=== PATIENT | male | born 2000 | race Caucasian/White ===

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

== ENCOUNTER 2023-03-20 02:52 | Day surgery (SDC) | payer OTHER, SELFPAY ==
[2023-03-20] VITALS (14 sets, daily range): BP systolic 93–152; BP diastolic 46–94; PULSE 66–86; RESP 16–18; TEMP 36.1–36.9; O2SAT 94–100; BMI 31.5
[2023-03-20 03:14] LABS: Appearance,Urine CLEAR (Clear); Bilirubin,Urine Negative (Negative); Blood, Urine Negative (Negative); Color,Urine YELLOW (Yellow); Glucose,Urine (UA) Negative (Negative); Ketones,Urine Negative (Negative); Leukocyte Esterase,Urine Negative (Negative); Microscopic, Urine URINE MICROSCOPIC (MICROSCOPIC); Nitrate,Urine Negative (Negative); PH,Urine 5.5 (5.0-8.5); Protein,Urine Negative (Negative); Specific Gravity, Urine >= 1.030 (1.005-1.030); Urobilinogen,Urine 0.2 EU/dl (0.2)
[2023-03-20 03:18] LABS: Basophils # 0.1 K/mm3 (0-0.2); Basophils % 0.3 % (0.1-2.0); Eosinophils # 0.4 K/mm3 (0.0-0.4); Hematocrit 48.3 % (42.0-52.0); Hemoglobin 16.6 g/dL (14.1-18.0); Lymphocytes # 2.4 K/mm3 (0.7-4.5); Mean Corpuscular HGB Conc 34.4 g/dL (31.8-35.4); Mean Corpuscular Hemoglobin 29.1 pg (27.0-31.2); Mean Corpuscular Volume 84.4 fl (80-94); Monocytes # 0.7 K/mm3 (0.1-1.0); Monocytes % 3.5 % (1.7-9.3); Neutrophils # 16.2 K/mm3 (1.8-7.8); Neutrophils % 82.3 % (37.0-80.0); Platelet Count 282 K/mm3 (142-424); Red Blood Count 5.71 M/mm3 (4.60-6.20); Red Cell Distribution Width 13.5 % (11.5-17.5); White Blood Count 19.7 K/mm3 (4.8-10.8)
--- NOTE | 2023-03-20 03:19 | CT_ITS ---
PROCEDURE INFORMATION: Exam: CT Abdomen And Pelvis With Contrast Exam date and time: 03/20/2023 3:58 AM Age: 23 years old Clinical indication: Abdominal pain; Additional info: Pain, ttp of rlq TECHNIQUE: Imaging protocol: Computed tomography of the abdomen and pelvis with contrast. Radiation optimization: All CT scans at this facility use at least one of these dose optimization techniques: automated exposure control; mA and/or kV adjustment per patient size (includes targeted exams where dose is matched to clinical indication); or iterative reconstruction. Contrast material: ISOVUE; Contrast volume: 75 ml; Contrast route: IV; REPORTING DATA: Count of CT and Cardiac NM exams in prior 12 months: This patient has received 0 known CTs and 0 known cardiac nuclear medicine studies in the 12 months prior to the current study. COMPARISON: CR XR PELVIS 1-2V 04/02/2021 6:23 AM FINDINGS: Lungs: Minimal gravity dependent changes noted at the lung bases. Liver: Normal. No mass. Gallbladder and bile ducts: Normal. No calcified stones. No ductal dilation. Pancreas: Normal. No ductal dilation. Spleen: The spleen is top-normal in caliber, measuring 11.6 x 4.0 x 13.2 cm. Adrenal glands: Normal. No mass. Kidneys and ureters: The kidneys enhance symmetrically and there is no evidence for hydronephrosis. There is minimal renal cortical scarring noted on the right. Stomach and bowel: Scattered colonic diverticula are noted. Appendix: The appendix is mildly dilated measuring up to 10 mm in thickness with a 6 mm appendicolith present compatible with acute appendicitis. There is no drainable fluid collection or free intraperitoneal air. Intraperitoneal space: No free intraperitoneal air or ascites. Vasculature: Unremarkable. No abdominal aortic aneurysm. Lymph nodes: Unremarkable. No enlarged lymph nodes. Urinary bladder: The urinary bladder is contracted. Reproductive: Unremarkable as visualized. Bones/joints: Unremarkable. No acute fracture. Soft tissues: Unremarkable. IMPRESSION: Acute appendicitis. Appendicolith.
[2023-03-20 03:20] LABS: MANUAL DIFFERENTIAL MANUAL DIFFERENTIAL (MANUAL DIFF)
[2023-03-20 03:23] LABS: Chloride 102 mmol/L (98-107); Potassium 4.1 mmoL/L (3.5-5.1); Sodium 139 mmol/L (136-145)
[2023-03-20 03:25] LABS: Alanine Aminotransferase 59 U/L (12-78); Aspartate Amino Transferase 40 U/L (17-59); Blood Urea Nitrogen 14 mg/dl (9-20); Creatinine Clearance Estimated 165 mL/min (50-200); Estimated Glomerular Filt Rate 94 ml/min (>60); GFR (African American) 114 ML/MIN (>60)
[2023-03-20 03:26] LABS: Albumin/Globulin Ratio 1.5 (1.1-1.8); Alkaline Phosphatase 88 U/L (38-126); Anion Gap 15.1 mEq/L (5-15); Bilirubin,Total 0.7 mg/dl (0.2-1.3); Calcium 9.1 mg/dl (8.4-10.2); Carbon Dioxide 26 mmol/L (22.0-30.0); Globulin 3.3 g/dL (1.3-3.2); Glucose 131 mg/dl (74-100); Lipase 102 U/L (23-300); Total Protein,Serum 8.3 g/dl (6.3-8.2)
[2023-03-20 03:28] LABS: Squamous Epithelial Cell,Urine Occasional #/hpf (0-5)
[2023-03-20 03:36] LABS: Eosinophils % 3 % (0-3); Lymphocytes % 13 % (10-50); Monocytes % 4 % (2-9); Neutrophils % 80 % (42-76); Platelet Estimate Normal; RBC Morphology Normal; Total Cells Counted 100
--- NOTE | 2023-03-20 04:22 | HMH.EDGENADL ---
Discharge Plan Disposition Patient Disposition: Still a Patient Condition: Good Prescriptions Prescriptions: No Action No Known Home Medications Referrals Follow up/Referrals: Provider,Referral, [Primary Care Provider] - See instructions Clinical Impressions Clinical Impression: Acute appendicitis Instructions Patient Instructions: DI for Acute Abdominal Pain Discharge ED Provider: Estelle Sanches Adult HPI General Chief complaint: Abdominal Pain Stated complaint: Stomach pain Time Seen by Provider: 03/20/23 03:05 Mode of Arrival: Ambulatory Source of Information: Patient Limitations: No Limitations Description of Symptoms (Recalled from ER Triage Doc. by RN): Patient reports sharp epigastric abdominal pain rated 8/10 that has been intermittent and steadily getting worse since 5pm yesterday afternoon. Patient reports last bowel movement was around 6pm yesterday, denies dysuria, denies N/V/D. Patient reports no other symptoms at this time. History of Present Illness HPI narrative: This patient is a 23-year-old male who denies significant past medical history presenting to the emergency department for evaluation with concern for generalized abdominal pain that started yesterday around 5 PM but has significantly gotten worse since then. Nothing seems to make it better or worse. He complains that it is all over his abdomen, but he is most tender in the lower abdomen, worse in the right lower quadrant. He denies any nausea, vomiting, changes bowel movements, dysuria, urinary symptoms, or other concerns. His last bowel movement was yesterday and was normal for him. Related Data Home Medications Medication Instructions Recorded Confirmed No Known Home Medications 04/02/21 04/02/21 Allergies Allergy/AdvReac Type Severity Reaction Status Date / Time No Known Allergies Allergy Verified 10/14/18 12:07 [facility] Disclaimer: The information contained in this section may have been updated after the patient was seen, as this information can be updated by other users. Social History Smoking Status: Current every day smoker alcohol intake: never current occupational status: other Travel in the last 8 weeks: None ROS Obtained: Yes All systems reviewed & no additional complaints except as documented Physical Exam General General appearance: alert and in no apparent distress Head Head exam: atraumatic and normocephalic Eye Eye exam: Present normal appearance, PERRL and EOMI ENT ENT exam: Present normal exam, normal oropharynx, mucous membranes moist and normal external ear exam Neck Neck exam: Present normal inspection, full ROM and trachea midline; Absent tenderness Chest Chest inspection: Present normal inspection and symmetric chest wall rise; Absent tenderness Respiratory Respiratory exam: Present normal lung sounds bilaterally; Absent respiratory distress, wheezes, stridor or accessory muscle use Cardiovascular Cardiovascular exam: Present regular rate and normal rhythm Abdominal Exam Abdominal exam: Present soft, tenderness (Positive Rovsing sign. Tenderness to palpation of the right lower quadrant.) and guarding; Absent distention, rebound or rigidity Extremities Exam Extremities exam: Present normal inspection, full ROM and normal capillary refill; Absent tenderness or edema Back Exam Back exam: Present normal inspection and full ROM; Absent tenderness Neurological Exam Neurological exam: Present alert, oriented X3, CN II-XII intact and normal gait; Absent motor sensory deficit Psychiatric Psychiatric exam: Present normal affect and normal mood Skin Skin exam: Present warm and dry Medical Decision Making Medical Records Medical records reviewed: Yes I reviewed the patient's medical records. [place] Inquiry Pt receiving controlled substance: No Vital Signs: 03/20/23 02:54 03/20/23 03:15 03/20/23 03:30
--- NOTE | 2023-03-20 05:05 | PC.NURSE ---
paging dr carmichael
--- NOTE | 2023-03-20 05:06 | PC.NURSE ---
on phone with dr Blum
--- NOTE | 2023-03-20 06:22 | EXP.GEN.HP ---
HPI HPI HPI: Patient is a 23-year-old from [place] who presented to the emergency department early this morning after he had developed sharp generalized abdominal pain beginning in the evening of 03/19/2023. He seemed to have more localization of the pain to the right lower quadrant. He presented to the emergency department. He underwent evaluation which revealed a leukocytosis of 19,700. CT scan was performed which reveals findings of dilated 10 mm appendix with 6 mm appendicolith and findings consistent with acute appendicitis. Surgical consultation was obtained. [facility] Disclaimer: The information contained in this section may have been updated after the patient was seen, as this information can be updated by other users. Social History Smoking Status: Current every day smoker alcohol intake: never current occupational status: other Travel in the last 8 weeks: None Review of Systems Review of Systems Review of systems:: pertinent systems reviewed and negative unless documented below Constitutional Constitutional: Reports poor appetite *Gastrointestinal Gastrointestinal: Reports abdominal pain Meds Home Medications and Allergies Home Medications Medication Instructions Recorded Confirmed Type No Known Home Medications 04/02/21 04/02/21 History New Prescriptions to Start Prescriptions: Allergies Allergy/AdvReac Type Severity Reaction Status Date / Time No Known Allergies Allergy Verified 10/14/18 12:07 Exam Data for Last 24 hours Vital signs and Labs for Last 24 Hours: Temp Pulse Resp BP Pulse Ox O2 Del Method 98.5 F 70 16 126/70 95 Room Air 03/20/23 02:54 03/20/23 05:00 03/20/23 02:54 03/20/23 05:00 03/20/23 05:00 03/20/23 03:15 Laboratory Results - last 24 hr 03/20/23 03:00: Urine Color Yellow, Urine Appearance Clear, Urine pH 5.5, Ur Specific Hawks >= 1.030, Urine Protein Negative, Urine Glucose (UA) Negative, Urine Ketones Negative, Urine Blood Negative, Urine Nitrate Negative, Urine Bilirubin Negative, Urine Urobilinogen 0.2, Ur Leukocyte Esterase Negative, Urine RBC None, Urine WBC None, Ur Squamous Epith Cells Occasional 03/20/23 03:10: WBC 19.7 H, RBC 5.71, Hgb 16.6, Hct 48.3, MCV 84.4, MCH 29.1, MCHC 34.4, RDW 13.5, Plt Count 282, MPV 8.0, Neut % (Auto) 82.3 H, Lymph % (Auto) 12.0, Randolph % (Auto) 3.5, Eos % (Auto) 2.0, Baso % (Auto) 0.3, Neut # (Auto) 16.2 H, Lymph # (Auto) 2.4, Randolph # (Auto) 0.7, Eos # (Auto) 0.4, Baso # (Auto) 0.1, Total Counted 100, Neutrophils % (Manual) 80 H, Lymphocytes % (Manual) 13, Monocytes % (Manual) 4, Eosinophils % (Manual) 3, Platelet Estimate Normal, RBC Morphology Normal, Sodium 139, Potassium 4.1, Chloride 102, Carbon Dioxide 26, Anion Gap 15.1 H, BUN 14, Creatinine 1.00, Estimated Creat Clear 165, Estimated GFR 94, Est GFR ( Amer) 114, Glucose 131 H, Calcium 9.1, Total Bilirubin 0.7, AST 40, ALT 59, Alkaline Phosphatase 88, Total Protein 8.3 H, Albumin 5.0, Globulin 3.3 H, Albumin/Globulin Ratio 1.5, Lipase 102 I & O for Last 24 hours: Intake & Output 03/17/23 03/18/23 03/19/23 03/20/23 11:59 11:59 11:59 11:59 Weight 220 lb *Routine HEENT Exam Head: Present normocephalic Eye: Present EOMI ENT: Present mucous membranes moist *Routine Neck Exam Neck: Present supple *Routine Respiratory Exam Respiratory: Present CTA bilaterally *Routine Cardiovascular Exam Cardiovascular: Present RRR *Routine Abdominal Exam Abdominal: Present soft and tenderness Comments: He has some mild diffuse tenderness and discomfort. He has tenderness with guarding in the right lower quadrant and a positive Rovsing sign *Routine Rectal Exam Rectal:: deferred *Routine Genitalia Exam Genitalia:: deferred Results Results Lab Results Last 24 Hours:: Laboratory Results - last 24 hr 03/20/23 03:00: Urine Color Yellow, Urine Appearance Clear, Urine pH 5.5, Ur Specific Gravit
--- NOTE | 2023-03-20 08:08 | P.OP_ITS ---
Date of procedure: 03/20/23 Pre-op Diagnosis:: Acute appendicitis Post-op Diagnosis:: Same Procedure performed:: Laparoscopic appendectomy Surgeon:: Bill Blum MD INTERCEPTOR OPERATOR:: Other Anesthesia: GETA Estimated blood loss (mL): 20 Operative findings:: He had a somewhat retrocecal acutely inflamed edematous indurated nonnecrotic appendicitis. Operative note:: Consent was obtained. Patient was taken the operating room. He was given preoperative intravenous antibiotic. In the operating room he was placed in a supine position. General anesthesia was induced via endotracheal tube. Barbour catheter was placed. Abdomen was prepped and draped in the standard surgical fashion. Subumbilical incision was made while performing abdominal wall lift Veress needle was inserted. CO2 pneumoperitoneum was achieved to 15 mmHg. 12 mm optical trocar was inserted at the umbilicus. Intraperitoneal contents were visualized. He was positioned in steep Trendelenburg with left side down. 5 mm suprapubic trocar was inserted. Additional 5 mm trocar was inserted in the right upper abdomen. 5 mm 30 degree laparoscope was inserted through the right upper abdominal trocar site. Cecum was retracted superiorly and medially. Ap pendix was identified partially in a retrocecal location. It was grasped with a Hinckley. Lateral peritoneal attachments were incised using GEMMA ultrasonic harmonic jerrica. Appendix was delivered anteriorly. The appendix was found to be acutely inflamed, thickened, indurated, mildly suppurative without necrosis. Mesoappendix was divided with GEMMA ultrasonic harmonic jerrica with care taken to coagulate the appendiceal artery. Dissection was carried down to the appendiceal base which was relatively uninflamed. The appendix was divided at its base with an endoscopic NANDA linear cutting stapling device. Appendix was placed within an Endo Catch retrieval device and removed from the peritoneal cavity via the umbilical trocar site. The appendiceal staple line was inspected for hemostasis and integrity which was assured. Limited irrigation and suctioning was carried out in the pericecal location. Trocars were then removed as CO2 pneumoperitoneum was evacuated. Fascia at the umbilicus was closed with a 0 Vicryl suture. Local anesthetic was infiltrated. Skin incision was closed with 4-0 Monocryl in a subcuticular fashion. Dermabond and dressings were applied. Condition: stable Disposition: PACU Complications:: None immediately apparent
--- NOTE | 2023-03-20 08:33 | SUR.OPER ---
urinary catheter removed at 0817 with 1000ml of pale yellow, clear urine. No difficulties with removal.
--- NOTE | 2023-03-20 09:22 | SUR.PHASEII ---
0920: Discharged from postop.
--- NOTE | 2023-03-23 07:41 | P.PNANES_ITS ---
[facility] Anesthesia Record Part II Anesthesia Record Part II Discharge Time: 08:50 Destination: Medical Surgical Department PACU nurse assessment reviewed?: Yes Patient Condition:: Good Anesthesia Complications:: None Swallowing reflex intact?: Yes Airway Patency: Patent Cyanosis?: No Blood Pressure: 131/72 SaO2: 100 Respiratory Rate: 17 Pulse Rate: 68 Temperature: 97.5 F Mental Status: Alert & Oriented Pain level:: 0 Nausea and/or vomitting:: None Intake, IV Amount: 0 Hydration: Adequate
[2023-03-23 07:42] VITALS: BP 131/72; PULSE 68; RESP 17; TEMP 36.4; O2SAT 100
== END 2023-03-20 08:40 ==
LOC: ER 05:10 → SDC 04-03 08:40
PROVIDERS: Emergency Provider Emergency Medicine; Visit Provider Surgery
PROC: (CPT 44950; principal; 2023-03-20 07:00)
DX: K35.80 Unspecified acute appendicitis (principal); F17.210 Nicotine dependence, cigarettes, uncomplicated
CPT/HCPCS: 44970; 74177; 80053; 81001; 83690; 85007; 85025; 96361; 96374; 96375; 99285; J0131; J2405; Q9967